=== PATIENT | female | born 1995 | race Caucasian/White ===

== ENCOUNTER 2017-08-19 09:24 | Emergency (ER) | payer BC ==
--- NOTE | 2017-08-19 09:49 | ER Document Report ---
ED Medical Screen (RME) - General Chief Complaint: Vag Bleeding, +preg <12wks Stated Complaint: STOMACH PAIN Time Seen by Provider: 08/19/17 09:46 Notes: pt states she believes she is 3 to 4 months preg but has not seen a doctor. has light pink discharge with cramping. no PMH TRAVEL OUTSIDE OF THE [place] IN LAST 30 DAYS: No - Related Data Allergies/Adverse Reactions: amoxicillin [Amoxicillin] Allergy (Severe, Verified 08/19/17 09:28) Hives pecans Allergy (Severe, Uncoded 08/19/17 09:28) Hives Past Medical History - General Last Menstrual Period: 04/2017 - Social History Chew tobacco use (# tins/day): No Frequency of alcohol use: None Drug Abuse: None - Past Medical History Cardiac Medical History: Pulmonary Medical History: Reports: Hx Asthma - sports induced no inhaler Renal/ Medical History: Denies: Hx Peritoneal Dialysis GI Medical History: Musculoskeltal Medical History: Infectious Medical History: Past Surgical History: Reports: Hx Orthopedic Surgery - Immunizations Immunizations up to date: Yes Hx Diphtheria, Pertussis, Tetanus Vaccination: Yes Physical Exam - Vital signs Vitals: Temp Pulse Resp BP Pulse Ox 97.9 F 77 16 127/51 H 99 08/19/17 09:35 08/19/17 09:35 08/19/17 09:35 08/19/17 09:35 08/19/17 09:35 Course - Vital Signs Vital signs: Temp Pulse Resp BP Pulse Ox 97.9 F 77 16 127/51 H 99 08/19/17 09:35 08/19/17 09:35 08/19/17 09:35 08/19/17 09:35 08/19/17 09:35
[2017-08-19 10:19] LABS: ABSOLUTE EOSINOPHILS # (AUTO) 0.1 10^3/uL (0.0-0.6); ABSOLUTE LYMPHOCYTES (AUTO) 1.8 10^3/uL (0.5-4.7); ABSOLUTE MONOCYTES (AUTO) 0.8 10^3/uL (0.1-1.4); ABSOLUTE NEUT (AUTO) 7.9 10^3/uL (1.7-8.2); BASOPHILS % (AUTO) 0.2 % (0-2); EOSINOPHILS % (AUTO) 0.8 % (0-6); HEMOGLOBIN 12.7 g/dL (12.0-15.5); LYMPHOCYTES % (AUTO) 17.3 % (13-45); MEAN CORPUSCULAR HEMOGLOBIN 29.7 pg (27.0-33.4); MEAN CORPUSCULAR HGB CONC 33.4 g/dL (32.0-36.0); MEAN CORPUSCULAR VOLUME 89 fl (80-97); MONOCYTES % (AUTO) 7.5 % (3-13); PLATELET COUNT 234 10^3/uL (150-450); RED BLOOD COUNT 4.27 10^6/uL (3.72-5.28); RED CELL DISTRIBUTION WIDTH 14.1 % (11.5-14.0); SEGMENTED NEUTROPHILS % (AUTO) 74.2 % (42-78); TOTAL CELLS COUNTED % (AUTO) 100 %; WHITE BLOOD COUNT 10.7 10^3/uL (4.0-10.5)
[2017-08-19 10:41] LABS: ALANINE AMINOTRANSFERASE 25 U/L (9-52); ALBUMIN 3.8 g/dL (3.5-5.0); ALKALINE PHOSPHATASE 65 U/L (38-126); ANION GAP 9 (5-19); ASPARTATE AMINO TRANSFERASE 30 U/L (14-36); BILIRUBIN,DIRECT 0.2 mg/dL (0.0-0.4); BILIRUBIN,TOTAL 0.3 mg/dL (0.2-1.3); BLOOD UREA NITROGEN 10 mg/dL (7-20); CALCIUM 9.5 mg/dL (8.4-10.2); CARBON DIOXIDE 25 mmol/L (22-30); CHLORIDE 105 mmol/L (98-107); GLUCOSE 81 mg/dL (75-110); POTASSIUM 4.1 mmol/L (3.6-5.0); SODIUM 138.7 mmol/L (137-145); TOTAL PROTEIN 6.7 g/dL (6.3-8.2)
[2017-08-19 10:50] LABS: AMORPHOUS SEDIMENT,URINE TRACE /HPF; APPEARANCE,URINE CLOUDY; BILIRUBIN,URINE NEGATIVE (NEGATIVE); COLOR,URINE YELLOW; GLUCOSE, URINE NEGATIVE (NEGATIVE); KETONES,URINE NEGATIVE (NEGATIVE); LEUKOCYTE ESTERASE,URINE TRACE (NEGATIVE); NITRITE,URINE NEGATIVE (NEGATIVE); PROTEIN,URINE NEGATIVE (NEGATIVE); URINE SPECIFIC GRAVITY 1.018; UROBILINOGEN,URINE NEGATIVE mg/dL (<2.0)
--- NOTE | 2017-08-19 12:35 | RADIOLOGY REPORT (SQ) ---
EXAM DESCRIPTION: U/S OB 14+ TRNABD 1GES W/O DOP COMPLETED DATE/TIME: 08/19/2017 12:13 pm REASON FOR STUDY: preg/pain COMPARISON: None. TECHNIQUE: Static and Dynamic grayscale imaging performed of gravid uterus using transabdominal appr oach. Additional selected color Doppler and spectral images recorded. All stored on PACS. LIMITATIONS: None. FINDINGS: EGA: 21 weeks 4 days SUNG: 12/26/2017 EFW: 433 +/- 64 grams PERCENTILE: Not calculated MATA: Largest pocket 4.5 cm PLACENTA: Posterior grade 1 PRESENTATION: Cephalic. ANATOMY: HEART RATE: 149 beats per minute. FOUR CHAMBER HEART: Visualized. THREE VESSEL CORD: Yes. CORD INSERTION: Visualized. KIDNEYS AND BLADDER: Visualized. Appear normal. STOMACH: Visualized. Appears normal. SPINE: Normal as visualized. BRAIN AND LATERAL VENTRICLES: Visualized. Appear normal. OTHER: No other significant finding. MATERNAL ADNEXA: Maternal ovaries not visualized. CERVICAL LENGTH: 3.8 cm Closed. OTHER: No other significant finding. IMPRESSION: LIVING INTRAUTERINE . ESTIMATED GESTATIONAL AGE 21 weeks 4 days NO VISUALIZED ANOMALIES. Trimester of : Second trimester - 13 weeks 1 day to 27 weeks 6 days. TECHNICAL DOCUMENTATION: JOB ID: [id number] [employer]- All Rights Reserved Reading location - IP/workstation name: [email or web address]
--- NOTE | 2017-08-19 13:06 | ER Document Report ---
ED General - General Chief Complaint: Vag Bleeding, +preg <12wks Stated Complaint: STOMACH PAIN Time Seen by Provider: 08/19/17 09:46 TRAVEL OUTSIDE OF THE [place] IN LAST 30 DAYS: No - HPI Patient complains to provider of: Vaginal bleeding positive Notes: Patient is a 1 in the past coming in for light pink vaginal bleeding ongoing for the last 24 hours. Patient also states a small amount of lower abdominal pain. Patient upon my evaluation is resting comfortably. Patient denies any sexual intercourse in the last 48 hours. Denies any trauma to the area. Patient denies any complications with previous pregnancies except for a miscarriage. Denies fevers chills nausea vomiting diarrhea. - Related Data Allergies/Adverse Reactions: amoxicillin [Amoxicillin] Allergy (Severe, Verified 08/19/17 09:28) Hives pecans Allergy (Severe, Uncoded 08/19/17 09:28) Hives Past Medical History - General Last Menstrual Period: 04/2017 - Social History Smoking Status: Never Smoker Chew tobacco use (# tins/day): No Frequency of alcohol use: None Drug Abuse: None Family History: Reviewed & Not Pertinent Patient has suicidal ideation: No Patient has homicidal ideation: No - Past Medical History Cardiac Medical History: Pulmonary Medical History: Reports: Hx Asthma - sports induced no inhaler Renal/ Medical History: Denies: Hx Peritoneal Dialysis GI Medical History: Musculoskeltal Medical History: Infectious Medical History: Past Surgical History: Reports: Hx Orthopedic Surgery - Immunizations Immunizations up to date: Yes Hx Diphtheria, Pertussis, Tetanus Vaccination: Yes Hx Pneumococcal Vaccination: 05/04/08 Review of Systems - Review of Systems Constitutional: No symptoms reported EENT: No symptoms reported Cardiovascular: No symptoms reported Respiratory: No symptoms reported Gastrointestinal: Abdominal pain Genitourinary: No symptoms reported Female Genitourinary: Vaginal bleeding Musculoskeletal: No symptoms reported Skin: No symptoms reported Hematologic/Lymphatic: No symptoms reported Neurological/Psychological: No symptoms reported -: Yes All other systems reviewed and negative Physical Exam - Vital signs Vitals: Temp Pulse Resp BP Pulse Ox 97.9 F 77 16 127/51 H 99 08/19/17 09:35 08/19/17 09:35 08/19/17 09:35 08/19/17 09:35 08/19/17 09:35 Interpretation: Normal - General General appearance: Appears well, Alert - HEENT Head: Normocephalic, Atraumatic Eyes: Normal Pupils: PERRL - Respiratory Respiratory status: No respiratory distress Chest status: Nontender Breath sounds: Normal Chest palpation: Normal - Cardiovascular Rhythm: Regular Heart sounds: Normal auscultation Murmur: No - Abdominal Inspection: Normal Distension: No distension Bowel sounds: Normal Tenderness: Nontender Organomegaly: No organomegaly - Back Back: Normal, Nontender - Extremities General upper extremity: Normal inspection, Nontender, Normal color, Normal ROM , Normal temperature General lower extremity: Normal inspection, Nontender, Normal color, Normal ROM , Normal temperature, Normal weight bearing. No: Alexandre's sign - Neurological Neuro grossly intact: Yes Cognition: Normal Orientation: AAOx4 [place] Coma Scale Eye Opening: Spontaneous Tamie Coma Scale Verbal: Oriented Tamie Coma Scale Motor: Obeys Commands [place] Coma Scale Total: 15 Speech: Normal Motor strength normal: LUE, RUE, LLE, RLE Sensory: Normal - Psychological Associated symptoms: Normal affect, Normal mood - Skin Skin Temperature: Warm Skin Moisture: Dry Skin Color: Normal Course - Re-evaluation Re-evalutation: 08/19/17 14:42 The patient presents with abdominal pain without signs of peritonitis or other life-threatening or serious etiology. The patient appears stable for discharge and has been instructed to return immediately if the symptoms worsen in any way , or in 8-12hr if not improved for re-evaluation. The patient has been instructed to return if the symptoms worsen or change in any way. Ultrasound was negative for any acute pathology. Patient was encouraged to observe pelvic rest patient will be discharged on follow-up with [facility] - Vital Signs Vital signs: Temp Pulse Resp BP Pulse Ox 97.7 F 72 18 117/65 99 08/19/17 13:06 08/19/17 13:06 08/19/17 13:06 08/19/17 13:06 08/19/17 13:06 - Laboratory Result Diagrams: 08/19/17 10:02 08/19/17 10:02 Laboratory results interpreted by me: 08/19/17 08/19/17 08/19/17 09:50 10:02 10:02 WBC 10.7 H RDW 14.1 H Creatinine 0.48 L Beta HCG, Quant 74182.00 H Ur Leukocyte Esterase TRACE H Discharge - Discharge Clinical Impression: Vaginal bleeding during Condition: Good Disposition: HOME, SELF-CARE Instructions: Bleeding During Early ([facility]) Additional Instructions: Your laboratory studies and ultrasound that showed normal the fetus. Please observe pelvic rest nothing inside the vagina including intercourse or tampons toys. Return to the ER if symptoms worsen. Continue your vitamins. Follow-up with [facility] as listed. For nausea and vomiting during I recomment: Start with 10-12.5 mg of pyridoxine (vitamin B6) three times a day for 2 days. If not fully effective, Increase to 12.5 mg of pyridoxine four times a day for 2 days. If not fully effective, Increase to 25 mg of pyridoxine three times a day for 2 days. If not fully effective, Continue 25 mg pyridoxine 3 times a day, and add 12.5 mg of doxylamine before bedtime each day for 2 days. If not fully effective, Continue 25 mg pyridoxine 3 times a day, and take 12.5 mg of doxylamine twice a day. If not fully effective, Continue 25 mg pyridoxine 3 times a day, and take 12.5 mg of doxylamine three times a day. If not fully effective, Continue 25 mg pyridoxine 3 times a day, and 12.5 mg of doxylamine 3 times a day , while adding Emetrol, one to two tablespoons (15-30 cc) taken once or twice a day as needed. (Emetrol is an [id number] mixture of sugar syrups and phosphoric acid [phosphorylated carbohydrate solution]) that acts by soothing the actual wall of the gastrointestinal tract). If not fully effective, Consult with your doctor. Referrals: ELIZABETH ONEILL MD [ACTIVE STAFF] - Follow up as needed
[2017-08-19 13:09] VITALS: BP 117/65
== END 2017-08-19 13:09 | disposition home or self-care (01) ==
LOC: ER 09:24
DX: O46.92 Antepartum hemorrhage, unspecified, second trimester (principal); O26.892 Other specified pregnancy related conditions, second trimester; R10.30 Lower abdominal pain, unspecified; J45.909 Unspecified asthma, uncomplicated; Z3A.21 21 weeks gestation of pregnancy
CPT/HCPCS: 36415; 76805; 80053; 81001; 84702; 85025; 86900; 86901; 99284

== ENCOUNTER 2017-09-15 18:29 | Outpatient (CLI) | payer BC ==
[2017-09-15 19:04] LABS: AMORPHOUS SEDIMENT,URINE TRACE /HPF; APPEARANCE,URINE TURBID; BILIRUBIN,URINE NEGATIVE (NEGATIVE); COLOR,URINE AMBER; GLUCOSE, URINE NEGATIVE (NEGATIVE); KETONES,URINE 20 mg/dL (NEGATIVE); LEUKOCYTE ESTERASE,URINE LARGE (NEGATIVE); NITRITE,URINE NEGATIVE (NEGATIVE); PROTEIN,URINE 30 mg/dL (NEGATIVE); URINE SPECIFIC GRAVITY 1.013; UROBILINOGEN,URINE NEGATIVE mg/dL (<2.0)
[2017-09-15 19:17] LABS: URINE AMPHETAMINES SCREEN NEGATIVE; URINE BARBITURATES SCREEN NEGATIVE; URINE BENZODIAZEPINES SCREEN NEGATIVE; URINE COCAINE SCREEN NEGATIVE; URINE PHENCYCLIDINE SCREEN NEGATIVE
[2017-09-15 19:29] LABS: URINE METHADONE SCREEN NEGATIVE
[2017-09-15] MEDS ORDERED: HYDROXYZINE PAMOATE 50 MG CAPSULE PO ONE (19:41)
[2017-09-15] MEDS ORDERED: HYDROXYZINE PAMOATE 50 MG CAPSULE ONE (19:49)
[2017-09-15 19:50] LABS: URINE MARIJUANA (THC) SCREEN UNCONFIRMED POSITIVE
[2017-09-15] MEDS ORDERED: CEFTRIAXONE 1 GM/D5W RTU 1 GM/50 ML RTUPB IV ONE (20:29)
[2017-09-15] MEDS ORDERED: CEFTRIAXONE SODIUM 1,000 MG in DEXTROSE 5%-WATER 50 ML IV ONE (21:45)
--- NOTE | 2017-09-15 23:43 | RADIOLOGY REPORT (SQ) ---
EXAM DESCRIPTION: U/S OB LIMITED COMPLETED DATE/TIME: 09/15/2017 10:14 pm REASON FOR STUDY: cervical length- cramping COMPARISON: None. TECHNIQUE: Limited transvaginal grayscale ultrasound for evaluation of specific requested obstetrica l parameters. LIMITATIONS: None. FINDINGS: CERVICAL LENGTH: 3.5 cm with minimal funneling, 2 mm length. MATA: Normal. FHR: 150 beats per minute. OTHER: No other significant findings. IMPRESSION: CERVICAL LENGTH: 3.5 cm with minimal funneling, 2 mm length. Trimester of : Second trimester - 13 weeks 1 day to 27 weeks 6 days. TECHNICAL DOCUMENTATION: JOB ID: [id number] [employer]- All Rights Reserved Reading location - IP/workstation name: [email or web address]
== END 2017-09-15 23:25 | disposition home or self-care (01) ==
LOC: LC 18:29
PROVIDERS: ATTEND Obstetrics & Gynecology
PROC: 4A1HXCZ Monitoring of Products of Conception, Cardiac Rate, External Approach (ICD-10-PCS; principal; 2017-09-15)
DX: O23.42 Unspecified infection of urinary tract in pregnancy, second trimester (principal); Z3A.25 25 weeks gestation of pregnancy
CPT/HCPCS: 87086; 81001; 80307; 76815; 59899; J0696; G0480

== ENCOUNTER 2017-12-25 21:59 | Inpatient (IN) | payer BC ==
[2017-12-25 23:13] LABS: APPEARANCE,URINE CLOUDY; BILIRUBIN,URINE NEGATIVE (NEGATIVE); COLOR,URINE YELLOW; GLUCOSE, URINE NEGATIVE (NEGATIVE); KETONES,URINE NEGATIVE (NEGATIVE); LEUKOCYTE ESTERASE,URINE SMALL (NEGATIVE); NITRITE,URINE NEGATIVE (NEGATIVE); PROTEIN,URINE 100 mg/dL (NEGATIVE); URINE SPECIFIC GRAVITY 1.018; UROBILINOGEN,URINE NEGATIVE mg/dL (<2.0)
[2017-12-25] MEDS ORDERED: LIDOCAINE 1% INJ-PF (10 MG/ML) 30 ML SDV ONE (23:15)
[2017-12-25] MEDS ORDERED: OXYTOCIN/NORMAL SALINE 20 UNIT/1,000 ML RTUINJ ONE (23:15)
[2017-12-25] MEDS ORDERED: MISOPROSTOL 0.2 MG TABLET ONE (23:15)
[2017-12-25 23:39] LABS: ABSOLUTE BASOPHILS # (AUTO) 0.1 10^3/uL (0.0-0.2); ABSOLUTE EOSINOPHILS # (AUTO) 0.1 10^3/uL (0.0-0.6); ABSOLUTE LYMPHOCYTES (AUTO) 3.3 10^3/uL (0.5-4.7); ABSOLUTE MONOCYTES (AUTO) 1.1 10^3/uL (0.1-1.4); ABSOLUTE NEUT (AUTO) 9.9 10^3/uL (1.7-8.2); BASOPHILS % (AUTO) 0.4 % (0-2); EOSINOPHILS % (AUTO) 0.8 % (0-6); HEMATOCRIT 33.2 % (36.0-47.0); HEMOGLOBIN 11.3 g/dL (12.0-15.5); LYMPHOCYTES % (AUTO) 22.7 % (13-45); MEAN CORPUSCULAR HGB CONC 33.9 g/dL (32.0-36.0); MEAN CORPUSCULAR VOLUME 83 fl (80-97); MONOCYTES % (AUTO) 7.7 % (3-13); PLATELET COUNT 229 10^3/uL (150-450); RED BLOOD COUNT 4.02 10^6/uL (3.72-5.28); SEGMENTED NEUTROPHILS % (AUTO) 68.4 % (42-78); TOTAL CELLS COUNTED % (AUTO) 100 %; WHITE BLOOD COUNT 14.5 10^3/uL (4.0-10.5)
--- NOTE | 2017-12-25 23:47 | Admission Physical ---
Datetime Report Generated by CPN: 12/25/2017 23:47 CURRENT ADMISSION Chief Complaint: Uterine Contractions Indication for Induction: Not Applicable Admit Impression : Term, Intrauterine Admit Plan: Initiate Labor Protocol ALLERGIES Medication Allergies: Yes Medication Allergies: amoxicillin/SV/Hives (12/25/2017) Latex: No Latex Allergies Food Allergies: pecan OBSTETRICAL HISTORY EDC: 12/27/2017 00:00 : 3 Para: 1 Term: 1 : 0 SAB: 1 IAB: 0 Ectopic: 0 Livin Cesareans: 0 VBACs: 0 Multiple Births: 0 Gestational Diabetes: No Rh Sensitization: No Incompetent Cervix: No DIANE: No Infertility: No ART Treatment: No Uterine Anomaly: No IUGR: No Hx Previous C/S: No Macrosomia: No Hx Loss/Stillborn: No PIH: Yes Hx : No Placenta Previa/Abruption: No Depression/PP Depression: No PTL/PROM: No Post Hemorrhage: No Current Procedures: Ultrasound Obstetrical History Comments: G1: male, 2014, 2 vessel cord, pre-e?, induced @ 39.6 G2: SAB @ 8 weeks G3:current SEE RECORDS Alcohol: No Marijuana : Yes Cocaine: No Other Illicit Drugs: No Cigarettes: Former Smoker. [id number] MEDICAL HISTORY Diabetes: No Blood Transfusion: No Pulmonary Disease (Asthma, TB): No Breast Disease: No Hypertension: Yes Delivery Technician Surgery: No Heart Disease: No Hosp/Surgery: No Autoimmune Disorder: No Anesthetic Complications: No Kidney Disease: No Abnormal Pap Smear: No Neuro/Epilepsy: No Psychiatric Disorders: No Other Medical Diseases: No Hepatitis/Liver Disease: No Significant Family History: No Varicosities/Phlebitis: No Trauma/Violence : No Thyroid Dysfunction: No Medical History Comments: high blood pressure first INFECTIOUS HISTORY Gonorrhea: No Genital Herpes: No Chlamydia: No Tuberculosis: No Syphilis: No Hepatitis: No HIV/AIDS Exposure: No Rash or Viral Illness: No HPV: No PHYSICAL EXAM General: Normal HEENT: Normal Neurologic: Normal Thyroid: Normal Heart: Normal Lungs: Normal Breast: Deferred Back: Normal Abdomen: Normal Genitourinary Exam: Normal Extremities: Normal DTRs: Normal Pelvic Type: Adequate FETUS A EGA: 39.5 PLANS FOR LABOR AND DELIVERY Labor and Delivery: None Pain Management: None Feeding Preference: Both Benefit of Breast Feed Discussed: Yes Circumcision: Yes INFORMED CONSENT Signature: with User ID: [email or web address]
[2017-12-26] MEDS ORDERED: PROMETHAZINE HCL 25 MG TABLET PO PRN (00:20)
[2017-12-26] MEDS ORDERED: DIPH/PERTUSS(ACELL)/TETANUS VAC/PF 0.5 ML SYR (>=10YO) IM PRN (00:20)
[2017-12-26] MEDS ORDERED: ACETAMINOPHEN WITH CODEINE #3 TABLET PO PRN (00:20)
[2017-12-26] MEDS ORDERED: PROMETHAZINE HCL INJ 25 MG/1 ML VIAL IV PRN (00:20)
[2017-12-26] MEDS ORDERED: ZOLPIDEM TARTRATE 5 MG TABLET PO PRN (00:20)
[2017-12-26] MEDS ORDERED: GLYCERIN/WITCH HAZEL LEAF 1 EACH MED..PAD TP PRN (00:20)
[2017-12-26] MEDS ORDERED: OXYTOCIN/NORMAL SALINE 20 UNIT/1,000 ML RTUINJ IV PRN (00:20)
[2017-12-26] MEDS ORDERED: MAGNESIUM HYDROXIDE SUSP 30 ML UDCUP PO PRN (00:20)
[2017-12-26] MEDS ORDERED: BENZOCAINE/MENTHOL AEROSOL SPRAY 56 ML TOP PRN (00:20)
[2017-12-26] MEDS ORDERED: DIPHENHYDRAMINE HCL 25 MG CAPSULE PO PRN (00:20)
[2017-12-26] MEDS ORDERED: PSEUDOEPHEDRINE HCL 30 MG TABLET PO PRN (00:20)
[2017-12-26] MEDS ORDERED: ACETAMINOPHEN 650 MG SUPP.RECT PR PRN (00:20)
[2017-12-26] MEDS ORDERED: NA PHOS,M-B/NA PHOS,DI-BA (ADULT) 133 ML ENEMA PR PRN (00:20)
[2017-12-26] MEDS ORDERED: MEASLES,MUMPS&RUBELLA VACC/PF 0.5 ML VIAL SUBCUT PRN (00:20)
[2017-12-26] MEDS ORDERED: PROMETHAZINE HCL 25 MG SUPP.RECT PR PRN (00:20)
[2017-12-26] MEDS ORDERED: DIBUCAINE 1% OINTMENT 28 GM TP PRN (00:20)
--- NOTE | 2017-12-26 00:22 | PDOC DELIVERY SUMMARY ---
Delivery Summary - Maternal Ruptured Membranes: AROM Fluids: Clear - Delivery Labor: Precipitous-Less Than 3 Hours Uterine Contraction Monitoring: External Pattern: Late Decels Support Person Present: Yes Placenta: Within Normal Limits Nuchal Cord: Yes - tight x2
[2017-12-26] MEDS ORDERED: IBUPROFEN 800 MG TABLET ONE (00:54)
[2017-12-26] MEDS ORDERED: ACETAMINOPHEN WITH CODEINE #3 TABLET ONE (00:55)
--- NOTE | 2017-12-26 02:23 | Delivery Summary ---
Del Sum A-C Datetime Report Generated by CPN: 12/26/2017 02:22 DELIVERY PERSONNEL DELIVERY PERSONNEL: [id number] Delivery Doctor:: Henry Daniels MD Labor and Delivery Nurse:: Jessica Samaniego RNquill machine operator Nurse:: Ashanti Higginbotham RN Nursery Nurse:: Natalie Krishnan RN Automotive Glass Specialist/CALL CENTRE SUPERVISOR: Sujata Semar, TUGBOAT OPERATOR MATERNAL INFORMATION Delivery Anesthesia: None Medications After Delivery: Pitocin Drip 20 Units/1000ml NSS Maternal Complications: Precipitous Labor (<3hrs) LABOR SUMMARY EDC: 12/27/2017 00:00 No. Babies in Womb: 1 Attempted: No Labor Anesthesia: None LABOR INFORMATION Reason for Induction: Not Applicable Onset of Labor: 12/25/2017 22:00 Complete Dilatation: 12/25/2017 23:53 Oxytocin: N/A Group B Beta Strep: negative Antibiotics # of Doses: N/A Steroids Given: None Reason Steroids Not Administered: Not Applicable MEMBRANES Membranes Rupture Method: Spontaneous Rupture of Membranes: 12/25/2017 21:00 Length of Rupture (hr): 3.15 Amniotic Fluid Color: Clear Amniotic Fluid Amount: Moderate STAGES OF LABOR Stage 1 hr: 1 Stage 1 min: 53 Stage 2 hr: 0 Stage 2 min: 16 Stage 3 hr: 0 Stage 3 min: 3 Total Time in Labor hr: 2 Total Time in Labor min: 12 VAGINAL DELIVERY Episiotomy: None Laceration #1: None Laceration Extension #1: N/A Laceration Repair: Not Applicable CSECTION DELIVERY Primary Indication: N/A Secondary Indication: N/A CSection Incidence: N/A Labor: N/A Elective: N/A CSection Incision: N/A BABY A INFORMATION Delivery Date/Time: 12/26/2017 00:09 Method of Delivery: Vaginal Born in Route : No : N/A Forceps: N/A Vacuum Extraction: N/A Shoulder Dystocia : No PRESENTATION/POSITION BABY A Presentation: Cephalic Cephalic Presentation: Vertex Vertex Position: Right Occipital Anterior Breech Presentation: N/A PLACENTA INFORMATION BABY A Placenta Delivery Time : 12/26/2017 00:12 Placenta Method of Delivery: Spontaneous Placenta Status: Delivered SCORES BABY A Heart Rate 1 min: >100 bpm Resp Effort 1 min: Good Cry Reflex Irritability 1 min: Cough or Sneeze or Pulls Away Muscle Tone 1 min: Active Motion Color 1 min: Blue/Pale Resuscitation Effort 1 min: Tactile Stimulation SCORE 1 MIN: 8 Heart Rate 5 min: >100 bpm Resp Effort 5 min: Good Cry Reflex Irritability 5 min: Cough or Sneeze or Pulls Away Muscle Tone 5 min: Active Motion Color 5 min: Body [place], Extremities Blue Resuscitation Effort 5 min: Tactile Stimulation SCORE 5 MIN: 9 INFANT INFORMATION BABY A Gestational Age at Delivery: 39.6 Gestational Status: Full Term- 39- 40.6 Weeks Outcome : Liveborn Condition : Stable Sex: Female IDENTIFICATION BABY A Verification Date/Time: 12/26/2017 00:22 ID Band Number: [id number] Mother's Name Verified: Yes Infant RN Verifying : B. Ring RN _ JPeggy Krishnan RN WEIGHT/LENGTH BABY A Birthweight (gm): 3110 Infant Weight (lb): 6 Weight (oz): 14 Infant Length (in): 19.75 Infant Length (cm): 50.17 CORD INFORMATION BABY A No. Cord Vessels: 3 Nuchal Cord : Around Neck x2, Tight Cord Blood Taken: Yes-For Eval (Mom's Blood Type - or O+) Infant Suction: Mouth ASSESSMENT BABY A Complications: None Physical Findings at Delivery: Within Normal Limits Physical Findings- Other: See full nursery assessment Infant Respirations: Appears Normal Skin to Skin: No Six Pack Packer/ALS Called : No Infant Care By: Sendy Krishnan RN Transferred To: Nursery BABY B INFORMATION : N/A SIGNATURES Signature: with User ID: [email or web address]
[2017-12-26] MEDS: IBUPROFEN 800 MG TABLET PO SCH ×3 (05:35→22:02)
[2017-12-26 08:34] LABS: URINE AMPHETAMINES SCREEN NEGATIVE; URINE BARBITURATES SCREEN NEGATIVE; URINE BENZODIAZEPINES SCREEN NEGATIVE; URINE COCAINE SCREEN NEGATIVE; URINE METHADONE SCREEN NEGATIVE; URINE PHENCYCLIDINE SCREEN NEGATIVE
[2017-12-26 08:53] LABS: URINE MARIJUANA (THC) SCREEN UNCONFIRMED POSITIVE
[2017-12-26] MEDS: FAMOTIDINE 20 MG TABLET PO SCH ×2 (10:57→22:02)
[2017-12-26] MEDS: PRENATAL VITAMIN W DHA CAPSULE PO SCH (10:57)
[2017-12-26] MEDS: SENNOSIDES/DOCUSATE 8.6-50 MG 1 EACH TABLET PO SCH (10:57)
[2017-12-26] MEDS: FERROUS SULFATE 325 MG TABLET PO SCH ×2 (10:57→18:02)
[2017-12-26] MEDS: DOCUSATE SODIUM 100 MG CAPSULE PO SCH ×2 (10:57→18:02)
[2017-12-27] MEDS: IBUPROFEN 800 MG TABLET PO SCH ×3 (05:37→21:22)
[2017-12-27 07:23] LABS: HEMATOCRIT 28.8 % (36.0-47.0); HEMOGLOBIN 10.1 g/dL (12.0-15.5); MEAN CORPUSCULAR VOLUME 83 fl (80-97); PLATELET COUNT 187 10^3/uL (150-450); RED BLOOD COUNT 3.47 10^6/uL (3.72-5.28); RED CELL DISTRIBUTION WIDTH 15.1 % (11.5-14.0); WHITE BLOOD COUNT 10.4 10^3/uL (4.0-10.5)
[2017-12-27] MEDS: PRENATAL VITAMIN W DHA CAPSULE PO SCH (10:08)
[2017-12-27] MEDS: DOCUSATE SODIUM 100 MG CAPSULE PO SCH ×2 (10:08→17:39)
[2017-12-27] MEDS: FAMOTIDINE 20 MG TABLET PO SCH ×2 (10:08→21:22)
[2017-12-27] MEDS: FERROUS SULFATE 325 MG TABLET PO SCH ×2 (10:08→17:38)
[2017-12-27] MEDS: SENNOSIDES/DOCUSATE 8.6-50 MG 1 EACH TABLET PO SCH (10:08)
--- NOTE | 2017-12-27 11:27 | PDOC PROGRESS REPORT ---
Subjective-OB Progress Note for:: 12/27/17 Subjective: reports bleeding slowing, pain controlled with current meds. denies needs. Physical Exam (OB) Vital Signs: Temp Pulse Resp BP Pulse Ox 98.0 F 68 14 125/51 L 100 12/27/17 07:41 12/27/17 07:41 12/27/17 07:41 12/27/17 07:41 12/27/17 07:41 Intake & Output 12/26/17 12/27/17 12/28/17 06:59 06:59 06:59 Weight 70.3 kg - Abdomen Description: Soft, Round Hernia Present: No Fundal Description: Firm, Midline Fundal Height: u/u - u/2 - Abdominal Distension: No distension Tenderness: Nontender - Extremities Lower extremities: Alexandre's sign - neg Calf: Normal, Nontender Objective-Diagnostic Laboratory: 12/27/17 06:55 12/27/17 06:55 WBC 10.4 RBC 3.47 L Hgb 10.1 L Hct 28.8 L MCV 83 MCH 29.0 MCHC 35.0 RDW 15.1 H Plt Count 187 Assessment and Plan(PN) - Assessment and Plan (1) Normal vaginal delivery Is this a current diagnosis for this admission?: Yes - Time Spent with Patient Time with patient: Less than 15 minutes - Disposition Anticipated Discharge: Home Within: within 24 hours
[2017-12-28] MEDS: IBUPROFEN 800 MG TABLET PO SCH (06:02)
[2017-12-28 08:50] VITALS: BP 112/58
[2017-12-28] MEDS: DOCUSATE SODIUM 100 MG CAPSULE PO SCH (09:10)
[2017-12-28] MEDS: FERROUS SULFATE 325 MG TABLET PO SCH (09:10)
[2017-12-28] MEDS: PRENATAL VITAMIN W DHA CAPSULE PO SCH (09:10)
[2017-12-28] MEDS: FAMOTIDINE 20 MG TABLET PO SCH (09:10)
[2017-12-28] MEDS: SENNOSIDES/DOCUSATE 8.6-50 MG 1 EACH TABLET PO SCH (09:10)
--- NOTE | 2017-12-28 09:51 | PDOC PROGRESS REPORT ---
Subjective-OB Progress Note for:: 12/28/17 Subjective: PP Dayt #2, , doing well, no complaints, O+/ Rubella Immune Physical Exam (OB) Vital Signs: Temp Pulse Resp BP Pulse Ox 98.3 F 61 14 112/58 L 98 12/28/17 08:50 12/28/17 08:50 12/28/17 08:50 12/28/17 08:50 12/28/17 08:50 Intake & Output 12/27/17 12/28/17 12/29/17 06:59 06:59 06:59 Output Total 2 Balance -2 - General General Appearance: Appears well, Alert In distress: None - PIH/Pre-Eclampsia DTR's: 1 + Clonus: Negative Headache: Absent Epigastric Pain: No Visual Changes: No - Lochia Lochia Amount: Scant < 10 ml Lochia Color: Rubra/Red - Abdomen Description: Soft, Flat Hernia Present: No Fundal Description: Firm, Midline Fundal Height: u/u - u/2 - Respiratory Respiratory Status: No respiratory distress - Genitourinary Genitourinary Note: voiding - Extremities Upper extremity: Normal inspection Lower extremities: Normal inspection - Neurological Cognition: Normal Orientation: AAOx4 - Psychological Associated symptoms: Normal affect, Normal mood Objective-Diagnostic Laboratory: 12/27/17 06:55 Assessment and Plan(PN) - Assessment and Plan (1) Normal course Is this a current diagnosis for this admission?: Yes (2) Normal vaginal delivery Is this a current diagnosis for this admission?: Yes - Time Spent with Patient Time with patient: Less than 15 minutes - Disposition Anticipated Discharge: Home Disposition: stable condition
--- NOTE | 2018-01-29 08:57 | PDOC DISCHARGE SUMMARY ---
Final Diagnosis Discharge Date: 12/28/16 - Final Diagnosis (1) Normal course Is this a current diagnosis for this admission?: Yes (2) Normal vaginal delivery Is this a current diagnosis for this admission?: Yes Discharge Data - Discharge Medication Prescriptions: Ibuprofen [Motrin 800 mg Tablet] 800 mg PO Q8 PRN #48 tablet PRN Reason: Pain Scale Of 2 Home Medications: No122/Iron/Folic Acid [ Multi Tablet] 1 tab PO DAILY 09/15/17 Ibuprofen [Motrin 800 mg Tablet] 800 mg PO Q8 PRN #48 tablet 12/28/17 Reason(s) for Admission: Onset of Labor - Diagnosis Test Laboratory: Temp Pulse Resp BP Pulse Ox 98.3 F 61 14 112/58 L 98 12/28/17 11:09 12/28/17 11:09 12/28/17 11:09 12/28/17 11:09 12/28/17 11:09 12/25/17 12/25/17 12/26/17 22:10 23:27 07:45 RBC 4.02 Hgb 11.3 L Hct 33.2 L Urine Opiates Screen Cancelled UNCONFIRMED POSITIVE 12/27/17 06:55 RBC 3.47 L Hgb 10.1 L Hct 28.8 L Urine Opiates Screen - Discharge information/Instructions Discharge Activity: Activity As Tolerated, No Lifting Over 10 Pounds, Pelvic Rest Discharge Diet: Regular Disposition: HOME, SELF-CARE Follow up with: [facility] in: 4, Weeks
== END 2017-12-28 12:15 | disposition home or self-care (01) | DRG 775 ==
LOC: LC 21:59 → LR 23:04 → 2S 12-26 02:29
PROVIDERS: ADMIT Obstetrics & Gynecology Gynecology; ATTEND Obstetrics & Gynecology Gynecology
PROC: 4A1HXCZ Monitoring of Products of Conception, Cardiac Rate, External Approach (ICD-10-PCS; 2017-12-25)
PROC: 10E0XZZ Delivery of Products of Conception, External Approach (ICD-10-PCS; principal; 2017-12-26)
DX: O62.3 Precipitate labor (principal); O69.1XX0 Labor and delivery complicated by cord around neck, with compression, not applicable or unspecified; Z88.0 Allergy status to penicillin; Z91.018 Allergy to other foods; Z87.891 Personal history of nicotine dependence; Z3A.39 39 weeks gestation of pregnancy; Z37.0 Single live birth
CPT/HCPCS: 36415; 80307; 81005; 84112; 85025; 85027; 86592; 86850; 86900; 86901; J2590; J3490

== ENCOUNTER → 2019-11-03 | Outpatient (CLI) | payer BC, MEDICAID ==
[2019-11-03 12:57] VITALS: BP 139/72
--- NOTE | 2019-11-03 12:57 | ER [facility] ASSESSMENT REPORT ---
Intake - In the Last 14 days Have you traveled outside [place]?: No Have you been in close contact with someone CONFIRMED: No Worked in Healthcare?: No - Symptoms Subjective Fever([place] feverish): No Chills: No Muscule Aches: Yes Runny Nose: Yes Sore Throat: No Cough (New or worsening chronic cough): Yes Shortness of breath: No Nausea or Vomiting: No Headache: No Abdominal Pain: No Diarrhea(3 or more loose stools in last 24 hours): No - Do you have any of the following Chronic lung disease: Asthma or emphysema or COPD: No Cystic Fibrosis: No Diabetes: No High Blood Pressure: No Cardiovascular Disease: No Chronic Kidney Disease: No Chronic Liver Disease: No Chronic blood disorder like Sickle Cell Disease: No Weak immune system due to disease or medication: No Neurologic condition that limits movement: No Developmental delay - Moderate to Severe: No Recent (within past 2 weeks) or current : No Morbid Obesity (>100 pounds over ideal weight): No - Objective Temperature: 96.8 F Pulse Rate: 94 Respiratory Rate: 16 Blood Pressure: 139/72 O2 Sat by Pulse Oximetry: 96 Objective: Given above, testing performed: If Testing Performed: Test Specimen Type Sent to General - General Information source: Patient Notes: Patient presents to the [facility] for evaluation for possible coronavirus. Patient reports symptoms for the past 4 days including loss of smell taste, body aches, runny nose and cough. Patient is a former smoker and denies any underlying medical problems. - Related Data Allergies/Adverse Reactions: amoxicillin [Amoxicillin] Allergy (Severe, Verified 12/25/17 22:51) Hives pecans Allergy (Severe, Uncoded 12/25/17 22:51) Hives Past Medical History - General Information source: Patient - Social History Smoking Status: Former Smoker Family History: Reviewed & Not Pertinent - Medical History Medical History: Negative - Past Medical History Cardiac Medical History: Pulmonary Medical History: Reports: Hx Asthma - sports induced no inhaler Neurological Medical History: Denies: Hx Cerebrovascular Accident, Hx Seizures Renal/ Medical History: Denies: Hx Peritoneal Dialysis GI Medical History: Musculoskeletal Medical History: Denies Hx Arthritis Infectious Medical History: Past Surgical History: Reports: Hx Orthopedic Surgery Physical Exam - Notes Notes: Full physical exam could not be performed due to covid 19 isolation protocols. Constitutional: Nontoxic appearance, no acute distress Eyes: Nonicteric, extraocular movements intact, sclera clear Cardiovascular: Heart rate and rhythm regular, no JVD Respiratory: Breath sounds clear, nonlabored breathing, no use of accessory muscles, no tachypnea Gastrointestinal: Abdomen not distended Muculoskeletal: Moves all extremities well Skin: Normal color Neuro: Awake alert oriented, normal speech Psych: Normal mood and affect Diagnostic Results Laboratory Results: The patient was evaluated during the global Covid 19 pandemic, and that diagnosis was suspected/considered upon their initial presentation. Their evaluation, treatment and testing was consistent with current guidelines for patients who present with complaints or symptoms that may be related to Covid 19. Patient presents with upper respiratory symptoms worrisome for possible Covid 19. Patient does not have emergency worrying symptoms such as difficulty breathing, shortness of breath, chest pain, pressure, confusion or cyanosis. Patient appears suitable for discharge as they are not of an advanced age, do not have any chronic medical conditions such as diabetes, CAD, immune deficiency, chronic lung disease or chronic kidney disease. Patient's vital signs are stable and patient is nontoxic in appearance. Good return precautions have been discussed with patient, patient verbalized understanding and is agreeable with discharge plan of care at this time. Patient Education/Counseling Counseling/Education: Patient was provided with discharge information including: As a person under investigation for Covid 19, the [place] department of Health and Human Services, division of public health advises you to adhere to the following guidance until your test results are reported to you. If your test result is positive, you will receive additional information from your provider and your local health department at that time. Remain at home until you are cleared by the health provider or public health authorities. Keep a log of visitors to your home, notify any visitors to your home of your isolation status. If you plan to move to a new address or leave the county, notify the local health department in your County. Call your doctor or seek care if you have an urgent medical need. Before seeking medical care, call ahead to get instructions from the provider before arriving at the medical office clinic or hospital. Notify them that you are being tested for the virus that causes Covid 19 so that arrangements can be made, as necessary, to prevent transmission to others in the healthcare setting. Next, notify the local health department in your county. If a medical emergency arises and you need to call 911, inform the first responders that you are being tested for the virus that causes Covid 19. Next, notify the local health department in your county. [facility] Discharge - Discharge Clinical Impression: Encounter for screening laboratory testing for COVID-19 virus Condition: Stable Disposition: Home; Selfcare
== END ==
LOC: RDC 12:17
PROVIDERS: ATTEND Nurse Practitioner Family
DX: Z20.828 Contact with and (suspected) exposure to other viral communicable diseases (principal); R05 Cough; R09.89 Other specified symptoms and signs involving the circulatory and respiratory systems; M79.10 Myalgia, unspecified site; R43.9 Unspecified disturbances of smell and taste; Z87.891 Personal history of nicotine dependence; Z88.1 Allergy status to other antibiotic agents; Z91.010 Allergy to peanuts; J45.909 Unspecified asthma, uncomplicated
CPT/HCPCS: 87635; C9803; 99201; 99211